=== PATIENT | female | born 1975 | race Native Hawaiian/Other Pacific Islander ===

== ENCOUNTER 2018-05-17 19:51 | Inpatient (IN) | payer OTHER ==
[2018-05-17 21:04] LABS: BASO % 0.4 % (0.0-2.0); HEMOGLOBIN 11.8 g/dL (12.0-16.0); LYMPH # 1.4 K/uL (1.0-4.3); LYMPH % 12.3 % (20.0-40.0); MEAN CELL VOLUME 89.3 fl (81.0-99.0); MEAN CORPUSCULAR HGB CONC 34.7 g/dL (33.0-37.0); MEAN PLATELET VOLUME 8.6 fl (7.2-11.7); MONO # 0.6 K/uL (0.0-0.8); MONO % 5.1 % (0.0-10.0); NEUT # 9.4 K/uL (1.8-7.0); NEUT % 82.2 % (50.0-75.0); RBC 3.8 Mil/uL (3.80-5.20); RED CELL DISTRIBUTION WIDTH 12.6 % (11.5-14.5); WHITE BLOOD COUNT 11.5 K/uL (4.8-10.8)
[2018-05-17 21:16] LABS: ACETAMINOPHEN < 10.0 ug/ml (10.0-30.0); SALICYLATE < 1.0 mg/dl
[2018-05-17] MEDS ORDERED: Sodium Chloride 0.9% 1,000 ML IV STA (21:29)
[2018-05-17 21:31] LABS: BLOOD UREA NITROGEN 6 mg/dl (7-17); GFR NON-AFRICAN AMERICAN > 60
[2018-05-17] MEDS ORDERED: Sodium Chloride 3% 100 ML IV SCH ×2 (21:45)
--- NOTE | 2018-05-17 22:12 | ED PDOC ---
HPI: General Adult Time Seen by Provider: 05/17/18 20:05 Chief Complaint (Nursing): Psychiatric Evaluation Chief Complaint (Provider): AMS History Per: Family () History/Exam Limitations: clinical condition Onset/Duration Of Symptoms: Hrs (today) Current Symptoms Are (Timing): Still Present Additional Complaint(s): Amy Langford is a 42 year old female, with a past medical history of anxiety, schizophrenia and currently on Zyprexa, who was brought to the emergency department by EMS accompanied by for altered mental status onset today. reports patient has been very anxious all day and she's been having pressured speech. He states all of sudden while she was in the kitchen she became silent and started to foam at the mouth. further states she fell back and hit the back of her head. He denies any seizure-like activity, tongue biting or incontinence. reports the only medications she took was Zyprexa 5mg today and she did not take any other medications. EMS report patient was combative and rough on the way to the hospital. History limited due to altered mental status. PMD: None provided. Past Medical History Reviewed: Historical Data, Nursing Documentation, Vital Signs Vital Signs: Last Vital Signs Temp 97.7 F 05/17/18 19:57 Pulse 71 05/17/18 19:57 Resp 16 05/17/18 19:57 BP 106/61 05/17/18 19:57 Pulse Ox 96 05/17/18 19:57 - Medical History PMH: Anxiety, Gastritis, Schizophrenia - Surgical History Surgical History: Endoscopy - Family History Family History: States: Unknown Family Hx - Immunization History Hx Tetanus Toxoid Vaccination: No Hx Influenza Vaccination: No Hx Pneumococcal Vaccination: No - Home Medications Home Medications: Ambulatory Orders Medication Instructions Recorded Olanzapine [Zyprexa] 5 mg PO DAILY #10 tablet 03/19/16 - Allergies Allergies/Adverse Reactions: Allergies Allergy/AdvReac Type Severity Reaction Status Date / Time No Known Allergies Allergy Unverified 05/17/18 19:57 Review of Systems Review Of Systems: ROS cannot be obtained secondary to pt's inabilty to answer questions. Neurological: Positive for: Altered Mental Status Physical Exam - Reviewed Nursing Documentation Reviewed: Yes Vital Signs Reviewed: Yes - Physical Exam Appears: Positive for: No Acute Distress Head Exam: Positive for: NORMAL INSPECTION, NORMOCEPHALIC. Negative for: ATRAUMATIC (abrasion to the back of the head) Skin: Positive for: Normal Color, Warm, Dry Eye Exam: Positive for: Normal appearance, EOMI, PERRL Neck: Positive for: Normal, Painless ROM Cardiovascular/Chest: Positive for: Regular Rate, Rhythm. Negative for: Murmur Respiratory: Positive for: Normal Breath Sounds. Negative for: Respiratory Distress Gastrointestinal/Abdominal: Positive for: Normal Exam, Soft. Negative for: Tend erness Extremity: Positive for: Normal ROM (able to move all extremities). Negative for: Deformity Neurologic/Psych: Positive for: surgical consultant II-XII (intact), Other (awake but does not follow commands. Combative). Negative for: Alert, Oriented - Laboratory Results Result Diagrams: 05/17/18 20:55 05/18/18 01:46 - ECG O2 Sat by Pulse Oximetry: 96 (RA) Pulse Ox Interpretation: Normal Medical Decision Making Medical Decision Making: Time: 20:05 A/P: 42 y/o with a history of psychiatric disorders presenting for AMS. Patient has profound hyponatremia on blood work possibly due to SIADH vs antipsychotic medications. Head CT negative for acute intracranial pathology. Due to severity of symptoms will give 100ml of hypertonic saline and reevaluate Initial Plan: --Head w/o contrast [CT] --EKG --Acetaminophen --Alcohol serum --BMP --Drug screen, urine --Osmolality, Serum --Osmolality, Urine --Salicylate --Drug screen, urine --Urine --Urine dipstick --CBC w/ differential --Chest portable [RAD] --Sodium Chloride 100 ml IV 1,000 mls/hr --Sodium Chloride 100 ml IV 1,000 mls/hr --Sodium Chloride 1,000 ml IV 500 mls/hr --Zofran Inj 4 mg IVP --Urinalysis --Reevaluation 21:[address] FINDINGS: BRAIN No acute intraparenchymal hemorrhage. No mass lesion. No CT evidence for acute territorial infarct. No midline shift or extra-axial collections. VENTRICLES: No hydrocephalus. ORBITS: The orbits are unremarkable. SINUSES AND MASTOIDS: The paranasal sinuses and mastoid air cells are clear. BONES: No fracture. SOFT TISSUES: Unremarkable. IMPRESSION: No acute intracranial abnormality. 10PM --[facility] --Patient becoming increasingly agitated, thrashing out, trying to stand up and pee on floor --Required 1 and then 2mg of ativan to calm patient with soft restraints --Straight cath was performed due to bladder distension with good urine output, patient became more calm and cooperative afterwards --Will recheck BMP to assess Na Scribe Attestation: Documented by Haroon Nash, acting as a scribe for Daniel Villalta MD. Provider Scribe Attestation: All medical record entries made by the Scribe were at my direction and personally dictated by me. I have reviewed the chart and agree that the record accurately reflects my personal performance of the history, physical exam, medical decision making, and the department course for this patient. I have also personally directed, reviewed, and agree with the discharge instructions and disposition. Disposition - Clinical Impression Clinical Impression: Hyponatremia, Altered mental status - Disposition Disposition Time: 22:00 Condition: FAIR
[2018-05-17] MEDS ORDERED: Sodium Chloride 3% 500 ML IV SCH (23:00)
[2018-05-18 00:32] LABS: SQUAMOUS EPITHIAL 6 /hpf (0-5); URINE BACTERIA RARE (<OCC); URINE BILIRUBIN NEGATIVE (NEGATIVE); URINE BLOOD LARGE (NEGATIVE); URINE CLARITY CLOUDY (Clear); URINE COLOR RED (YELLOW); URINE GLUCOSE (UA) NEG (Normal); URINE LEUKOCYTE ESTERASE TRACE Leu/uL (Negative); URINE PROTEIN 100 mg/dL (NEGATIVE); URINE UROBILINOGEN 0.2-1.0 mg/dL (0.2-1.0)
[2018-05-18 00:45] LABS: BARBITURATES, UR NEGATIVE (NEGATIVE); BENZODIAZEPINES, UR NEGATIVE (NEGATIVE); OPIATES, UR NEGATIVE (NEGATIVE); PHENCYCLIDINE, UR NEGATIVE (NEGATIVE)
[2018-05-18 00:46] LABS: OSMOLALITY,URINE 205 mosm/kg (300-1000)
[2018-05-18] MEDS ORDERED: Povidone Iodine Oint 10% Foilpak UD ONE (01:34)
[2018-05-18 02:02] LABS: BLOOD UREA NITROGEN 5 mg/dl (7-17); CALCIUM 8.3 mg/dL (8.4-10.2); GFR NON-AFRICAN AMERICAN > 60
[2018-05-18] MEDS ORDERED: cefTRIAXone (Rocephin) 1 gm Inj ONE ×2 (02:34→08:43)
[2018-05-18] MEDS ORDERED: Sodium Chloride 0.9% 1,000 ML IV SCH (06:00)
[2018-05-18 06:34] LABS: BASO % 0.1 % (0.0-2.0); HEMOGLOBIN 12.9 g/dL (12.0-16.0); LYMPH # 1.2 K/uL (1.0-4.3); LYMPH % 11.3 % (20.0-40.0); MEAN CELL VOLUME 90.2 fl (81.0-99.0); MEAN CORPUSCULAR HEMOGLOBIN 31.7 pg (27.0-31.0); MEAN CORPUSCULAR HGB CONC 35.2 g/dL (33.0-37.0); MEAN PLATELET VOLUME 8.2 fl (7.2-11.7); MONO # 0.8 K/uL (0.0-0.8); MONO % 7.6 % (0.0-10.0); NEUT # 8.9 K/uL (1.8-7.0); NRBC % 0.1 % (0.0-0.0); RBC 4.08 Mil/uL (3.80-5.20); RED CELL DISTRIBUTION WIDTH 12.6 % (11.5-14.5); WHITE BLOOD COUNT 10.9 K/uL (4.8-10.8)
[2018-05-18 06:45] LABS: ALB/GLOB RATIO 1.3 (1.0-2.1); ALBUMIN 3.8 g/dL (3.5-5.0); ALT/SGPT 23 U/L (9-52); AST/SGOT 31 U/L (14-36); BLOOD UREA NITROGEN 5 mg/dl (7-17); CALCIUM 8.6 mg/dL (8.4-10.2); GFR NON-AFRICAN AMERICAN > 60
[2018-05-18] MEDS ORDERED: Potassium Chloride 20 mEq ER Tab PO ONE (06:49)
[2018-05-18] MEDS ORDERED: Potassium CL 10mEq/100ml 100 ML IVPB ONE ×3 (07:10→07:53)
--- NOTE | 2018-05-18 09:49 | CT ---
Date of service: 05/17/2018 PROCEDURE: CT HEAD WITHOUT CONTRAST. HISTORY: head injury, vomiting COMPARISON: None available. TECHNIQUE: Axial computed tomography images were obtained through the head/brain without intravenous contrast. Radiation dose: Total exam DLP = 1822.09 mGy-cm. This CT exam was performed using one or more of the following dose reduction techniques: Automated exposure control, adjustment of the mA and/or kV according to patient size, and/or use of iterative reconstruction technique. FINDINGS: HEMORRHAGE: No intracranial hemorrhage. BRAIN: No intracranial mass. There is diffuse cerebral edema with loss of the normal sulci and some a narrowing of the 3rd and lateral ventricles. There is no evidence of herniation. The basilar cisterns are preserved. The cerebellar tonsils are normally situated. VENTRICLES: No hydrocephalus. No midline CALVARIUM: No fracture. PARANASAL SINUSES: Unremarkable as visualized. No significant inflammatory changes. MASTOID AIR CELLS: Unremarkable as visualized. No inflammatory changes. OTHER FINDINGS: None. IMPRESSION: Findings consistent with diffuse cerebral edema. No herniation. No intracranial hemorrhage. The preliminary findings for this examination were reported by [facility] Rad[facility] at 9:14 p.m. on 05/17/2018. There is discordance of this report with the preliminary findings. The preliminary report did not describe the finding of diffuse cerebral edema. Findings discussed by telephone with Dr. Thomason in the emergency room at 9:45 a.m. on 05/18/2018.
--- NOTE | 2018-05-18 10:01 | CP.PCM.CON ---
History of Present Illness - History of Present Illness History of Present Illness: consult requested for agitation pt is a 42 year old female, with a past psychiatric history of paranoid schizophrenia who was brought to the emergency department by EMS accompanied by for altered mental status onset today. reports patient has been very anxious all day and she's been having pressured speech. He states all of sudden while she was in the kitchen she became silent and started to foam at the mouth. further states she fell back and hit the back of her head on evaluation pt has her eye closed, non verbal, with psychomotor agitation attempting to get out of bed , had to be physically restrained for sfety, unable to further assess mental status spoke with Mr Bryant Mota [phone] , reported pt has been diagnosed with schizophrenia paranoid type 8years ago, hospitalized in [place] and placed on risperidone, since then she has history of non compliance with medications, had multiple hospitalizations in the [facility], one was at [facility] [place] and one was in [place] last year, pt placed on zyprexa but non compliant Past Patient History - Past Social History Smoking Status: Never Smoked - GASTROINTESTINAL Hx Gastritis: Yes - PSYCHIATRIC Hx Anxiety: Yes Hx Schizophrenia: Yes - ANESTHESIA Hx Anesthesia: No Meds Allergies/Adverse Reactions: Allergies Allergy/AdvReac Type Severity Reaction Status Date / Time No Known Allergies Allergy Unverified 05/17/18 19:57 - Medications Medications: Current Medications Sodium Chloride (Hypertonic Saline 3%) 500 mls @ 30 mls/hr IV .[id number] KEY Stop: 05/18/18 22:48 Last Admin: 05/18/18 00:14 Dose: 30 mls/hr Ceftriaxone Sodium 1 gm/ (Sodium Chloride) 100 mls @ 100 mls/hr IVPB DAILY KEY; Protocol Lorazepam (Ativan) 1 mg IVP Q6 KEY Last Admin: 05/18/18 07:39 Dose: 1 mg Results - Vital Signs Recent Vital Signs: Last Vital Signs Temp 99.1 F 05/18/18 08:34 Pulse 84 05/18/18 09:34 Resp 26 H 05/18/18 09:34 BP 140/69 05/18/18 09:34 Pulse Ox 94 L 05/18/18 09:34 - Labs Result Diagrams: 05/18/18 05:55 05/18/18 05:55 Labs: Laboratory Results - last 24 hr 05/17/18 05/17/18 05/17/18 20:55 20:55 20:55 WBC 11.5 H RBC 3.80 Hgb 11.8 L Hct 34.0 MCV 89.3 D MCH 31.0 MCHC 34.7 RDW 12.6 Plt Count 233 MPV 8.6 Neut % (Auto) 82.2 H Lymph % (Auto) 12.3 L [place] % (Auto) 5.1 Eos % (Auto) 0.0 Baso % (Auto) 0.4 Neut # (Auto) 9.4 H Lymph # (Auto) 1.4 [place] # (Auto) 0.6 Eos # (Auto) 0.0 Baso # (Auto) 0.0 Sodium 119 L* Potassium 3.8 Chloride 87 L Carbon Dioxide 18 L Anion Gap 18 BUN 6 L Creatinine 0.4 L Est GFR ( Amer) > 60 Est GFR (Non-Af Amer) > 60 Random Glucose 123 H Serum Osmolality Calcium 8.0 L Phosphorus Magnesium Total Bilirubin AST ALT Alkaline Phosphatase Total Protein Albumin Globulin Albumin/Globulin Ratio Urine Color Urine Clarity Urine pH Ur Specific [place] Urine Protein Urine Glucose (UA) Urine Ketones Urine Blood Urine Nitrate Urine Bilirubin Urine Urobilinogen Ur Leukocyte Esterase Urine RBC (Auto) Urine Microscopic WBC Ur Squamous Epith Cells Urine Bacteria Urine Osmolality Salicylates < 1.0 Urine Opiates Screen Urine Methadone Screen Acetaminophen < 10.0 L Ur Barbiturates Screen Ur Phencyclidine Scrn Ur Amphetamines Screen U Benzodiazepines Scrn U Oth Cocaine Metabols U Cannabinoids Screen Alcohol, Quantitative < 10 05/17/18 05/18/18 05/18/18 22:15 00:15 00:15 WBC RBC Hgb Hct MCV MCH MCHC RDW Plt Count MPV Neut % (Auto) Lymph % (Auto) [place] % (Auto) Eos % (Auto) Baso % (Auto) Neut # (Auto) Lymph # (Auto) [place] # (Auto) Eos # (Auto) Baso # (Auto) Sodium Potassium Chloride Carbon Dioxide Anion Gap BUN Creatinine Est GFR ( Amer) Est GFR (Non-Af Amer) Random Glucose Serum Osmolality 243 L Calcium Phosphorus Magnesium Total Bilirubin AST ALT Alkaline Phosphatase Total Protein Albumin Globulin Albumin/Globulin Ratio Urine Color Red Urine Clarity Cloudy Urine pH 6.0 Ur Specific [place] 1.006 Urine Protein 100 Urine Glucose (UA) Neg Urine Ketones 20 Urine Blood Large Urine Nitrate Negative Urine Bilirubin Negative Urine Urobilinogen 0.2-1.0 Ur Leukocyte Esterase Trace Urine RBC (Auto) 846 H Urine Microscopic WBC 85 H Ur Squamous Epith Cells 6 H Urine Bacteria Rare Urine Osmolality 205 L Salicylates Urine Opiates Screen Negative Urine Methadone Screen Negative Acetaminophen Ur Barbiturates Screen Negative Ur Phencyclidine Scrn Negative Ur Amphetamines Screen Negative U Benzodiazepines Scrn Negative U Oth Cocaine Metabols Negative U Cannabinoids Screen Negative Alcohol, Quantitative 05/18/18 05/18/18 05/18/18 01:46 05:55 05:55 WBC 10.9 H RBC 4.08 Hgb 12.9 Hct 36.7 MCV 90.2 MCH 31.7 H MCHC 35.2 RDW 12.6 Plt Count 243 MPV 8.2 Neut % (Auto) 81.0 H Lymph % (Auto) 11.3 L [place] % (Auto) 7.6 Eos % (Auto) 0.0 Baso % (Auto) 0.1 Neut # (Auto) 8.9 H Lymph # (Auto) 1.2 [place] # (Auto) 0.8 Eos # (Auto) 0.0 Baso # (Auto) 0.0 Sodium 124 L 131 L Potassium 3.3 L 3.4 L Chloride 92 L 99 Carbon Dioxide 20 L 22 Anion Gap 15 13 BUN 5 L 5 L Creatinine 0.5 L 0.5 L Est GFR ( Amer) > 60 > 60 Est GFR (Non-Af Amer) > 60 > 60 Random Glucose 122 H 111 H Serum Osmolality Calcium 8.3 L 8.6 Phosphorus 2.2 L Magnesium 2.0 Total Bilirubin 1.2 AST 31 ALT 23 Alkaline Phosphatase 44 Total Protein 6.7 Albumin 3.8 Globulin 2.9 Albumin/Globulin Ratio 1.3 Urine Color Urine Clarity Urine pH Ur Specific [place] Urine Protein Urine Glucose (UA) Urine Ketones Urine Blood Urine Nitrate Urine Bilirubin Urine Urobilinogen Ur Leukocyte Esterase Urine RBC (Auto) Urine Microscopic WBC Ur Squamous Epith Cells Urine Bacteria Urine Osmolality Salicylates Urine Opiates Screen Urine Methadone Screen Acetaminophen Ur Barbiturates Screen Ur Phencyclidine Scrn Ur Amphetamines Screen U Benzodiazepines Scrn U Oth Cocaine Metabols U Cannabinoids Screen Alcohol, Quantitative Assessment & Plan - Assessment and Plan (Free Text) Assessment: pt noted to have NA of 119 rule out hyperactive delirium schizophrenia paranoid type with hyperactive catatonia Plan: recommend pt to be started on haldol 2mg q6 po if refuses IM ativan 1mg po q6 if refuses IM benadryl 25mg po q6 if refuses IM pt when medically cleared need to be referred for screening for involuntary admission by [facility] as pt at current mental status is floridly psychotic and needs stabilization
--- NOTE | 2018-05-18 10:29 | CP.PCM.PN ---
Subjective - Date & Time of Evaluation Date of Evaluation: 05/18/18 Time of Evaluation: 10:26 - Subjective Subjective: called by Dr Mia hill diffuse cerebral edema undoubtedly secondary to metobolic/hyponatremia (correction) factors - Not secondary to trauma suggest medical management Objective - Vital Signs/Intake and Output Vital Signs (last 24 hours): Temp Pulse Resp BP Pulse Ox 99.1 F 84 26 H 140/69 94 L 05/18/18 08:34 05/18/18 09:34 05/18/18 09:34 05/18/18 09:34 05/18/18 09:34 - Medications Medications: Current Medications Sodium Chloride (Hypertonic Saline 3%) 500 mls @ 30 mls/hr IV .[id number] KEY Stop: 05/18/18 22:48 Last Admin: 05/18/18 00:14 Dose: 30 mls/hr Ceftriaxone Sodium 1 gm/ (Sodium Chloride) 100 mls @ 100 mls/hr IVPB DAILY KEY; Protocol Lorazepam (Ativan) 1 mg IVP Q6 KEY Last Admin: 05/18/18 07:39 Dose: 1 mg - Labs Labs: 05/18/18 05:55 05/18/18 05:55
[2018-05-18] MEDS ORDERED: levETIRAcetam 1,000 MG in Sodium Chloride 0.9% 100 ML IVPB ONE (10:41)
--- NOTE | 2018-05-18 10:45 | CARD ---
APPROVED REPORT Date of service: 05/17/2018 EKG Measurement Heart [id number] <Conclusion> Normal sinus rhythm Normal ECG
[2018-05-18] MEDS: Dexmedetomidine Hydrochloride 400 MCG in Sodium Chloride 0.9% 96 ML IV ONE ×2 (11:22→17:57)
--- NOTE | 2018-05-18 12:58 | RAD ---
Date of service: 05/17/2018 HISTORY: AMS COMPARISON: 02/27/2012. FINDINGS: LUNGS: No active pulmonary disease. PLEURA: No significant pleural effusion identified, no pneumothorax apparent. CARDIOVASCULAR: No atherosclerotic calcification present Normal. OSSEOUS STRUCTURES: No significant abnormalities. VISUALIZED UPPER ABDOMEN: Normal. OTHER FINDINGS: None. IMPRESSION: No active disease. No significant interval change compared to the prior examination(s).
[2018-05-18] MEDS ORDERED: Valproate 1,000 MG in Sodium Chloride 0.9% 100 ML IVPB ONE (14:00)
[2018-05-18 15:29] LABS: ALB/GLOB RATIO 1.4 (1.0-2.1); ALBUMIN 4.1 g/dL (3.5-5.0); ALT/SGPT 29 U/L (9-52); AST/SGOT 56 U/L (14-36); BLOOD UREA NITROGEN 4 mg/dl (7-17); CALCIUM 8.9 mg/dL (8.4-10.2); GFR NON-AFRICAN AMERICAN > 60
--- NOTE | 2018-05-18 15:46 | CP.CCUPN ---
CCU Subjective - Physician Review Subjective (Free Text): Discussed with ER MD. No history / HPI obtainable from patient- at the bedside. 42F with PMH BiPolar psychiatric disease, non-compliant on Zyprexa, admitted today after falling at home, no LOC, had witnessed generalized tonic clonic activity lasting for approx. 20 secs as per . No bowel or bladder incontinence noted. Now, under 4 point leather restraints, lying supine, under 1:1 supervision, intermittently trying to sit bolt-upright suddenly, does not appear distressed nor diaphoretic, not following commands in [place]ian or [place] language. reports no prior h/o seizures, other neurologic disorders. He mentions she has been drinking more water than usual over the past 24-36 hours, +abnormal sleep pattern over the past week. Admission Na levels was 119, now 131 this AM, 9 hours later. Other vitals and I/O's reviewed. SBP 120-130s, HR 88, RR 16, SPo2 96% on RA, Afebrile. ROS: No other pertinent negs or positives on 10+ system review obtainable due to nonverbal and agitated state Allergies: NKDA Home Meds: Zyprexa 5mg qd PMSFH: All other Nursing and physician documentation reviewed to date; no new pertinent info noted relevant to current medical problems. EXAM- HEENT: no icterus, no gaze preference, Pupils 2 mm bilat and sluggish reactivity, depressed gag, agitated on testing NECK: No JVD visible, supple, carotids equal upstroke bilat/no bruit CHEST: clear BS all gardner, no wheezes audible HEART: regular, distant tachy S1S2, no rubs / murmurs ABD: soft, no focal tenderness, no guarding, no organomegaly, BS hypoactive. EXT: no edema, no calf tenderness or palpable cords, distal pulses intact and symmetrical. NEURO: non-verbal, moves all extremities SKIN: no rashes, warm and dry, Multiple bruises over bilat shoulders, upper chest, knees and arms. No skin breakage. LABS: WBC= 10.9 HGB= 12.9 PLTs= 243K Na= 131 K= 3.4 CL=99 HCO3= 22 BUN/Cr= 5/0.5 BS= 111 CXR: clear (my interp). CT Brain result reviewed; no acute pathology. EKG: Sinus 60, normal (my interp). IMPRESSION / MAJOR PROBLEMS NOW: 1. New Onset Seizure Disorder 2. Hyponatremia 2 Psychogenic Polydipsia 3. Delirium / Encephalopathy, 2 S/p Correction of Hyponatremia, r/o ODS / CPM effect PLAN: 1. Re-review and interpretation of initial CT brain noted. Further infusion of NSS stopped for now. D5W started, to reverse Na levels a bit, will consider Desmopressin too. If CPM effects worsen, will consider plasmapheresis. MRI Brain, AED loading with Valproate, and 24H video EEG after discussion with Neurologist. 2. Maintain Neurochecks, HOB elevation, Seizure precautions. 3. Precedex for Delirium control. 4. Watch for need for airway protection. 5. See orders.
--- NOTE | 2018-05-18 17:42 | MRI ---
Date of service: 05/18/2018 PROCEDURE: MRI BRAIN WITHOUT CONTRAST HISTORY: f/u cerebral edema COMPARISON: Comparison is made to the previous CT dated 05/17/2018 TECHNIQUE: Multiplanar, multisequence MR images of the brain were obtained without intravenous contrast enhancement. FINDINGS: HEMORRHAGE: None DWI: No evidence of an acute or early subacute infarction. BRAIN PARENCHYMA: There is a questionable 7.3 x 6 millimeter Iso signal lesion in the frontal horn of the right lateral ventricle. No evidence of mass effect or midline shift. No atrophy or chronic microvascular ischemic changes. VENTRICLES: Unremarkable. No hydrocephalus. CRANIUM: Unremarkable. ORBITS: Grossly unremarkable. PARANASAL SINUSES/MASTOIDS: Clear VASCULAR SYSTEM: Skull base flow voids intact. OTHER FINDINGS: None. IMPRESSION: No evidence of acute pathology in the brain. No MRI evidence of brain edema noted in the T2 FLAIR images. Suspicious for possible small lesion at the frontal horn of the right lateral ventricle measures 7.3 x 6 millimeter not fully characterized in this study.
[2018-05-18] MEDS: VALPROATE IVPB SCH ×2 (17:48→23:57)
[2018-05-18] MEDS: SODIUM CHLORIDE 0.9% IVPB SCH ×2 (17:48→23:57)
--- NOTE | 2018-05-18 18:15 | CP.PCM.HP ---
History of Present Illness - History of Present Illness History of Present Illness: pt admitted for ams and hyponatremia. overnight CT head was read as normal. captain waiter this provider contacted by [facility] stating final ct head was read w/ difuse brain edema. pt was agitated all night requiring sedation adn restraints. pt seen at bedside w/ sig other and dr mello-icu. pt was upgraded after ct finding. sig other describes pt ddrinking significant amts of water yesterday but no other complaints. no dysurai, frequency, urgency, etc. no f/c, n/v/d. no uri s/s. pt has been noncompliant w/ her psych meds for bipolar 1 and psychosis. at present pt is non verbal w/ [address] 1:1 at bedside. resps even and unalbored. spo2 92-95% placded on nasal o2 at this providers orders. nsr on monitor. describes tonic clonic movements and foaming at the mouth at time of fall at home, captain waiter er, when he called 911. all bw noted. imaging to date reviwed. case d/c w/ dr guardado-neurosurg who recommends medical management. neuro on consult. Present on Admission - Present on Admission Any Indicators Present on Admission: No Review of Systems - Review of Systems Systems not reviewed;Unavailable: Altered Mental Status, Psychotic - Neurological Neurological: As Per HPI, Behavioral Changes, Confusion Past Patient History - Past Social History Smoking Status: Never Smoked - MUSCULOSKELETAL/RHEUMATOLOGICAL Hx Falls: Yes - GASTROINTESTINAL Hx Gastritis: Yes - PSYCHIATRIC Hx Psychophysiologic Disorder: Yes Hx Substance Use: No - ANESTHESIA Hx Anesthesia: No Meds Allergies/Adverse Reactions: Allergies Allergy/AdvReac Type Severity Reaction Status Date / Time No Known Allergies Allergy Unverified 05/17/18 19:57 Physical Exam - Constitutional Appears: Non-toxic, Combative, Agitated, Confused - Head Exam Head Exam: ATRAUMATIC, NORMAL INSPECTION, NORMOCEPHALIC - Eye Exam Eye Exam: EOMI, Normal appearance, PERRL Pupil Exam: NORMAL ACCOMODATION, PERRL - ENT Exam ENT Exam: Mucous Membranes Moist, Normal Exam - Neck Exam Neck exam: Positive for: Normal Inspection - Respiratory Exam Respiratory Exam: Clear to Auscultation Bilateral, NORMAL BREATHING PATTERN - Cardiovascular Exam Cardiovascular Exam: REGULAR RHYTHM, RRR, +S1, +S2 - GI/Abdominal Exam GI & Abdominal Exam: Normal Bowel Sounds, Soft. absent: Tenderness - Extremities Exam Extremities exam: Positive for: full ROM, normal capillary refill, normal inspection, pedal pulses present - Back Exam Back exam: NORMAL INSPECTION - Neurological Exam Neurological exam: Abnormal Gait, Reflexes Normal Additional comments: agitated, confused, in 4 pt restraints w/ 1:1 at bedside. non verbal. moving upper body - Psychiatric Exam Psychiatric exam: Agitated, Manic - Skin Skin Exam: Dry, Intact, Normal Color, Warm Results - Vital Signs Recent Vital Signs: Last Vital Signs Temp 97.8 F 05/18/18 16:00 Pulse 52 L 05/18/18 18:00 Resp 18 05/18/18 18:00 BP 97/61 L 05/18/18 18:00 Pulse Ox 100 05/18/18 18:00 - Labs Result Diagrams: 05/18/18 05:55 05/18/18 14:26 Labs: Laboratory Results - last 24 hr 05/17/18 05/17/18 05/17/18 20:55 20:55 20:55 WBC 11.5 H RBC 3.80 Hgb 11.8 L Hct 34.0 MCV 89.3 D MCH 31.0 MCHC 34.7 RDW 12.6 Plt Count 233 MPV 8.6 Neut % (Auto) 82.2 H Lymph % (Auto) 12.3 L [place] % (Auto) 5.1 Eos % (Auto) 0.0 Baso % (Auto) 0.4 Neut # (Auto) 9.4 H Lymph # (Auto) 1.4 [place] # (Auto) 0.6 Eos # (Auto) 0.0 Baso # (Auto) 0.0 Sodium 119 L* Potassium 3.8 Chloride 87 L Carbon Dioxide 18 L Anion Gap 18 BUN 6 L Creatinine 0.4 L Est GFR ( Amer) > 60 Est GFR (Non-Af Amer) > 60 Random Glucose 123 H Serum Osmolality Calcium 8.0 L Phosphorus Magnesium Total Bilirubin AST ALT Alkaline Phosphatase Total Protein Albumin Globulin Albumin/Globulin Ratio Urine Color Urine Clarity Urine pH Ur Specific [place] Urine Protein Urine Glucose (UA) Urine Ketones Urine Blood Urine Nitrate Urine Bilirubin Urine Urobilinogen Ur Leukocyte Esterase Urine RBC (Auto) Urine Microscopic WBC Ur Squamous Epith Cells Urine Bacteria Urine Osmolality Salicylates < 1.0 Urine Opiates Screen Urine Methadone Screen Acetaminophen < 10.0 L Ur Barbiturates Screen Ur Phencyclidine Scrn Ur Amphetamines Screen U Benzodiazepines Scrn U Oth Cocaine Metabols U Cannabinoids Screen Alcohol, Quantitative < 10 05/17/18 05/18/18 05/18/18 22:15 00:15 00:15 WBC RBC Hgb Hct MCV MCH MCHC RDW Plt Count MPV Neut % (Auto) Lymph % (Auto) [place] % (Auto) Eos % (Auto) Baso % (Auto) Neut # (Auto) Lymph # (Auto) [place] # (Auto) Eos # (Auto) Baso # (Auto) Sodium Potassium Chloride Carbon Dioxide Anion Gap BUN Creatinine Est GFR ( Amer) Est GFR (Non-Af Amer) Random Glucose Serum Osmolality 243 L Calcium Phosphorus Magnesium Total Bilirubin AST ALT Alkaline Phosphatase Total Protein Albumin Globulin Albumin/Globulin Ratio Urine Color Red Urine Clarity Cloudy Urine pH 6.0 Ur Specific [place] 1.006 Urine Protein 100 Urine Glucose (UA) Neg Urine Ketones 20 Urine Blood Large Urine Nitrate Negative Urine Bilirubin Negative Urine Urobilinogen 0.2-1.0 Ur Leukocyte Esterase Trace Urine RBC (Auto) 846 H Urine Microscopic WBC 85 H Ur Squamous Epith Cells 6 H Urine Bacteria Rare Urine Osmolality 205 L Salicylates Urine Opiates Screen Negative Urine Methadone Screen Negative Acetaminophen Ur Barbiturates Screen Negative Ur Phencyclidine Scrn Negative Ur Amphetamines Screen Negative U Benzodiazepines Scrn Negative U Oth Cocaine Metabols Negative U Cannabinoids Screen Negative Alcohol, Quantitative 05/18/18 05/18/18 05/18/18 01:46 05:55 05:55 WBC 10.9 H RBC 4.08 Hgb 12.9 Hct 36.7 MCV 90.2 MCH 31.7 H MCHC 35.2 RDW 12.6 Plt Count 243 MPV 8.2 Neut % (Auto) 81.0 H Lymph % (Auto) 11.3 L [place] % (Auto) 7.6 Eos % (Auto) 0.0 Baso % (Auto) 0.1 Neut # (Auto) 8.9 H Lymph # (Auto) 1.2 [place] # (Auto) 0.8 Eos # (Auto) 0.0 Baso # (Auto) 0.0 Sodium 124 L 131 L Potassium 3.3 L 3.4 L Chloride 92 L 99 Carbon Dioxide 20 L 22 Anion Gap 15 13 BUN 5 L 5 L Creatinine 0.5 L 0.5 L Est GFR ( Amer) > 60 > 60 Est GFR (Non-Af Amer) > 60 > 60 Random Glucose 122 H 111 H Serum Osmolality Calcium 8.3 L 8.6 Phosphorus 2.2 L Magnesium 2.0 Total Bilirubin 1.2 AST 31 ALT 23 Alkaline Phosphatase 44 Total Protein 6.7 Albumin 3.8 Globulin 2.9 Albumin/Globulin Ratio 1.3 Urine Color Urine Clarity Urine pH Ur Specific [place] Urine Protein Urine Glucose (UA) Urine Ketones Urine Blood Urine Nitrate Urine Bilirubin Urine Urobilinogen Ur Leukocyte Esterase Urine RBC (Auto) Urine Microscopic WBC Ur Squamous Epith Cells Urine Bacteria Urine Osmolality Salicylates Urine Opiates Screen Urine Methadone Screen Acetaminophen Ur Barbiturates Screen Ur Phencyclidine Scrn Ur Amphetamines Screen U Benzodiazepines Scrn U Oth Cocaine Metabols U Cannabinoids Screen Alcohol, Quantitative 05/18/18 14:26 WBC RBC Hgb Hct MCV MCH MCHC RDW Plt Count MPV Neut % (Auto) Lymph % (Auto) [place] % (Auto) Eos % (Auto) Baso % (Auto) Neut # (Auto) Lymph # (Auto) [place] # (Auto) Eos # (Auto) Baso # (Auto) Sodium 137 Potassium 3.5 L Chloride 107 Carbon Dioxide 23 Anion Gap 11 BUN 4 L Creatinine 0.4 L Est GFR ( Amer) > 60 Est GFR (Non-Af Amer) > 60 Random Glucose 131 H Serum Osmolality Calcium 8.9 Phosphorus Magnesium Total Bilirubin 1.2 AST 56 H D ALT 29 Alkaline Phosphatase 47 Total Protein 7.0 Albumin 4.1 Globulin 3.0 Albumin/Globulin Ratio 1.4 Urine Color Urine Clarity Urine pH Ur Specific [place] Urine Protein Urine Glucose (UA) Urine Ketones Urine Blood Urine Nitrate Urine Bilirubin Urine Urobilinogen Ur Leukocyte Esterase Urine RBC (Auto) Urine Microscopic WBC Ur Squamous Epith Cells Urine Bacteria Urine Osmolality Salicylates Urine Opiates Screen Urine Methadone Screen Acetaminophen Ur Barbiturates Screen Ur Phencyclidine Scrn Ur Amphetamines Screen U Benzodiazepines Scrn U Oth Cocaine Metabols U Cannabinoids Screen Alcohol, Quantitative Assessment & Plan (1) Psychosis Assessment and Plan: psych consult recs appriciated. [facility] [place] when med stable Status: Acute (2) DVT prophylaxis Assessment and Plan: scd nad ae hose hold anticoag until full etiology of s/s Status: Acute (3) Altered mental status Assessment and Plan: ?? r/t seizure vs psychosis vs cerebral edema vs hyponatremia vs other etiology 1:1 for safety, 4 pt restraints icu care caution w/ sedation and all sedation orders dc for now. q1h neuro checks depakote and neuro consult for r/o seizures Status: Acute (4) Hyponatremia Assessment and Plan: corrected in er w/ 3% saline icu care cautious monitoring of fluid balance, na Status: Acute (5) UTI (urinary tract infection) Assessment and Plan: rocephin, ivf, monitor c/s Status: Acute Decision To Admit - Pt Status Changed To: Hospital Disposition Of: Inpatient - Admit Certification Admit to Inpatient:: After my assessment, the patient will require h ospitalization for at least two midnights. This is because of the severity of symptoms shown, intensity of services needed, and/or the medical risk in this patient being treated as an outpatient. - . Bed Request Type: Intensive Care Admitting Physician: Samy Coombs
[2018-05-18 21:31] LABS: BLOOD UREA NITROGEN 5 mg/dl (7-17); CALCIUM 8.8 mg/dL (8.4-10.2); GFR NON-AFRICAN AMERICAN > 60
[2018-05-18] MEDS ORDERED: Lactated Ringer's 500 ML IV SCH (21:45)
[2018-05-18] MEDS ORDERED: Lactated Ringer's 1,000 ML IV SCH (21:45)
[2018-05-19] MEDS: VALPROATE IVPB SCH ×2 (03:12→10:19)
[2018-05-19] MEDS: SODIUM CHLORIDE 0.9% IVPB SCH ×2 (03:12→10:19)
[2018-05-19 06:46] LABS: BASO % 0.4 % (0.0-2.0); EOS % 0.4 % (0.0-4.0); HEMOGLOBIN 12.2 g/dL (12.0-16.0); LYMPH # 2.2 K/uL (1.0-4.3); LYMPH % 30.7 % (20.0-40.0); MEAN CELL VOLUME 91.3 fl (81.0-99.0); MEAN CORPUSCULAR HEMOGLOBIN 31.5 pg (27.0-31.0); MEAN CORPUSCULAR HGB CONC 34.5 g/dL (33.0-37.0); MEAN PLATELET VOLUME 8.7 fl (7.2-11.7); MONO # 0.5 K/uL (0.0-0.8); MONO % 6.7 % (0.0-10.0); NEUT # 4.5 K/uL (1.8-7.0); NEUT % 61.8 % (50.0-75.0); NRBC % 0.1 % (0.0-0.0); RBC 3.85 Mil/uL (3.80-5.20); RED CELL DISTRIBUTION WIDTH 12.7 % (11.5-14.5); WHITE BLOOD COUNT 7.2 K/uL (4.8-10.8)
[2018-05-19 06:59] LABS: ALB/GLOB RATIO 1.3 (1.0-2.1); ALBUMIN 3.5 g/dL (3.5-5.0); ALT/SGPT 24 U/L (9-52); AST/SGOT 57 U/L (14-36); BLOOD UREA NITROGEN 7 mg/dl (7-17); CALCIUM 8.5 mg/dL (8.4-10.2); GFR NON-AFRICAN AMERICAN > 60
--- NOTE | 2018-05-19 08:40 | CP.PCM.PN ---
Subjective - Date & Time of Evaluation Date of Evaluation: 05/19/18 Time of Evaluation: 08:39 - Subjective Subjective: pt calm, had ativan last night. b/l soft wrist restraints noted. on eeg. 1:1 at bedside. sinus constantino on monitor, hypotensive after presadex Objective - Vital Signs/Intake and Output Vital Signs (last 24 hours): Temp Pulse Resp BP Pulse Ox 99.2 F 51 L 20 81/38 L 100 05/19/18 08:00 05/19/18 08:00 05/19/18 08:00 05/19/18 08:00 05/19/18 08:00 Intake and Output: 05/19/18 05/19/18 06:59 18:59 Intake Total 1310 100 Output Total 800 Balance 510 100 - Medications Medications: Current Medications Valproate Sodium 150 mg/ (Sodium Chloride) 101.5 mls @ 100 mls/hr IVPB Q6 [facility] Last Admin: 05/19/18 03:12 Dose: 100 mls/hr Lactated Ringer's (Lactated Ringer's 500ml) 500 mls @ 999 mls/hr IV .Q31M [facility] Last Admin: 05/18/18 21:45 Dose: 999 mls/hr Lactated Ringer's (Lactated Ringer's) 1,000 mls @ 50 mls/hr IV .Q20H [facility] Last Admin: 05/18/18 22:20 Dose: 50 mls/hr Ceftriaxone Sodium 1 gm/ (Sodium Chloride) 100 mls @ 100 mls/hr IVPB DAILY@0300 [facility]; Protocol Last Admin: 05/19/18 03:16 Dose: 100 mls/hr Lorazepam (Ativan) 1 mg IVP Q4 PRN PRN Reason: Agitation Pantoprazole Sodium (Protonix Inj) 40 mg IVP DAILY [facility] - Labs Labs: 05/19/18 05:15 05/19/18 05:15 Assessment and Plan (1) Psychosis Status: Acute (2) DVT prophylaxis Status: Acute (3) Altered mental status Status: Acute (4) Hyponatremia Status: Acute (5) UTI (urinary tract infection) Status: Acute - Assessment and Plan (Free Text) Assessment: (1) Psychosis Assessment and Plan: psych consult recs appriciated. [facility] [place] when med stable Status: Acute (2) DVT prophylaxis Assessment and Plan: scd nad ae hose hold anticoag until full etiology of s/s Status: Acute (3) Altered mental status Assessment and Plan: ?? r/t seizure vs psychosis vs cerebral edema vs hyponatremia vs other etiology 1:1 for safety, now in 2 pt soft restraints icu care caution w/ sedation and all sedation orders dc for now. q1h neuro checks depakote and neuro consult for r/o seizures eeg being completed Status: Acute (4) Hyponatremia Assessment and Plan: corrected in er w/ 3% saline icu care cautious monitoring of fluid balance, na bw ntoed Status: Acute (5) UTI (urinary tract infection) Assessment and Plan: c/s noted. will dc rocephin Status: Acute
[2018-05-19] MEDS ORDERED: Potassium CL 10 MEQ/50 ML 50 ML IVPB SCH (14:00)
[2018-05-19] MEDS ORDERED: Potassium Chloride 20 mEq/15 ml LIQ UD PO ONE (14:30)
[2018-05-19] MEDS: Lactated Ringer's 1,000 ML IV SCH (15:00)
[2018-05-19] MEDS: Valproate 500 MG in Sodium Chloride 0.9% 100 ML IVPB SCH (22:22)
--- NOTE | 2018-05-20 02:11 | PN ---
DATE: 05/19/2018 CRITICAL CARE PROGRESS NOTE LOCATION: The patient in ICU, bed 424. TIME SPENT: 35 minutes. The patient is seen and evaluated at the bedside. Past medical, surgical, family, and social history reviewed. Events since admission noted. SUBJECTIVE: A 42-year-old female with history significant for bipolar disorder, on Zyprexa, noncompliant with medications, admitted through emergency room. She was brought to ER, accompanied by , reported fall at home, hitting back of her head, unclear details about the seizure activity. In the ER, no report of seizure, however, on admission, reports to having had brief seizure without bladder or bowel disturbance or biting of the tongue. Overnight, the patient received Ativan because of the agitation. Precedex was weaned off, seen by psychiatry consult, recommended involuntary admission at the [facility] for evaluation of her underlying psychiatric disorder. No further seizure noted. This morning, alert and awake, follows commands appropriately, has been at the bedside. Reports that she has no new complaints. Denies some headache. No pain at the neck. No chest pain, palpitation. No abdominal discomfort. Trying to take p.o. OBJECTIVE: VITAL SIGNS: Temperature 98.5, heart rate 63 to 74 and regular, blood pressure of 90/46 to 96/48 with a mean arterial pressure 64, saturation 100%. Intake of 1410, output 800, positive balance 610. Weight not documented properly. HEAD, EYES, EARS, NOSE AND THROAT: Pupils reactive, 3 mm. Conjunctivae pink. Sclerae are white. NECK: Supple. Trachea is central. CHEST: Bilateral breath sounds. Clear to auscultation. HEART: Rhythm regular. S1, S2 normal. No audible murmur. ABDOMEN: Bowel sounds present. Soft. Liver and spleen not palpable. Bladder not distended. EXTREMITIES: No clubbing, cyanosis, or edema. NEUROLOGIC: No cranial nerve deficit. No motor deficit. No sensory impairment. CURRENT MEDICATIONS: Include Ringer's lactate at 50 mL/hour, Ativan 1 mg IV every 4 hours p.r.n., Protonix 40 IV daily, potassium chloride 20 mEq p.o. x1, valproate 500 mg IV every 12 hours. LABORATORY DATA: WBC 7.2, hemoglobin 12.2, hematocrit 35.2, platelet count 199. Neutrophils 61.8, lymphocytes 30.7, monocytes 6.7. SMA-7, sodium 140, potassium 3.4, chloride 111, CO2 of 22, blood urea nitrogen 7, creatinine 0.5, calcium 8.5, phosphorus 2.3, magnesium 2.2, total bilirubin 0.7, AST 57, ALT 24, total protein 6.2, albumin 3.5. Urinalysis, wbc 85, rbc 846, urine osmolality 205, salicylate less than 1. Urine opiates negative. Alcohol level less than 10. Tylenol less than 10. Microbiology, urine culture 10 to 50 CFU per mL contamination. Brain MRI, no evidence of acute pathology in the brain. No MRI evidence of brain edema, suspicious for possible small lesion at the frontal horn of the right lateral ventricle, measures 7.3 x 6 mm. Chest x-ray, no active disease. No significant interval change compared to the prior examination. IMPRESSION: A 42-year-old female with a history significant for bipolar disorder, admitted after status post fall at home. Questionable seizure activity noted. Hyponatremia corrected. Remains hemodynamically stable, off Precedex. Hypokalemia noted, being corrected with potassium supplement. Seen by psychiatry consult. Evaluated for possible involuntary admission to stabilize her bipolar disorder. CT MRI showed abnormality involving small lesion at the frontal horn of the right lateral ventricle of unclear significance, may need neurology evaluation to identify, has any relation to reportedly seizure activity. Currently continue with antiseizure medications. Once the patient becomes more stable, can be evaluated further with an MRI. Stephen Munoz MD
[2018-05-20 07:40] LABS: ALB/GLOB RATIO 1.2 (1.0-2.1); ALBUMIN 3.2 g/dL (3.5-5.0); ALT/SGPT 59 U/L (9-52); AST/SGOT 145 U/L (14-36); BLOOD UREA NITROGEN 5 mg/dl (7-17); CALCIUM 8.5 mg/dL (8.4-10.2); GFR NON-AFRICAN AMERICAN > 60
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
[2018-05-20 08:12] LABS: BASO % 0.3 % (0.0-2.0); EOS % 0.6 % (0.0-4.0); HEMOGLOBIN 11.8 g/dL (12.0-16.0); LYMPH # 2.4 K/uL (1.0-4.3); LYMPH % 35.7 % (20.0-40.0); MEAN CELL VOLUME 94.8 fl (81.0-99.0); MEAN CORPUSCULAR HEMOGLOBIN 31.3 pg (27.0-31.0); MEAN PLATELET VOLUME 8.6 fl (7.2-11.7); MONO # 0.3 K/uL (0.0-0.8); MONO % 5.1 % (0.0-10.0); NEUT # 3.9 K/uL (1.8-7.0); NEUT % 58.3 % (50.0-75.0); NRBC % 0.1 % (0.0-0.0); RBC 3.78 Mil/uL (3.80-5.20); RED CELL DISTRIBUTION WIDTH 12.8 % (11.5-14.5); WHITE BLOOD COUNT 6.8 K/uL (4.8-10.8)
[2018-05-20] MEDS: Valproate 500 MG in Sodium Chloride 0.9% 100 ML IVPB SCH ×2 (08:35→22:41)
[2018-05-20] MEDS: Potassium Chloride 20 mEq ER Tab PO SCH ×2 (08:38→20:24)
[2018-05-20] MEDS: Prenatal Multivit/Folic Acid/Iron Tab PO SCH (10:00)
[2018-05-20] MEDS: Potassium CL 10mEq/100ml 100 ML IVPB SCH ×3 (10:01→16:19)
[2018-05-20 10:40] LABS: IRON 86 ug/dL (37-170)
[2018-05-20 10:53] LABS: % IRON SATURATION 35 % (20-55); TOTAL IRON BINDING CAPACITY 245 ug/dL (250-450)
--- NOTE | 2018-05-20 13:22 | CP.PCM.CON ---
History of Present Illness - History of Present Illness History of Present Illness: 42 yr old woman who was BIBA with , after having several seizures, and found to be severely hyponatremic. states that he was in the other room, when he suddenly heard a bang, and patient was seen to be tonic and falling back, hitting her head. SHe then had a gtc with foaming of the mouth. Of note, she has not been taking her psychiatry medications and has paranoid schizophrenia. PT's initial CT head showed severe cerebral edema, and she was unresponsive until this morning. COntinuous VEEG is now running and shows normal rhythms with no seizure, and some normal sleep and awake rhythms. There were no interictal discharges, but patient was started on depakote nonetheless. ROS: malaise, headache. PMH/PSH FH/SH All: On exam: AAOX2. doesnt know the date. CN 2-12 normal. no neglect. Follows one step commands, and names and repeats. Can ID her and his name. Motor: weak, but moves all extremities. Sensory: not accurate Cerebellar: no dysmetria Gait not tested. Past Patient History - Past Social History Smoking Status: Never Smoked - MUSCULOSKELETAL/RHEUMATOLOGICAL Hx Falls: Yes - GASTROINTESTINAL Hx Gastritis: Yes - PSYCHIATRIC Hx Psychophysiologic Disorder: Yes Hx Substance Use: No - ANESTHESIA Hx Anesthesia: No Meds Allergies/Adverse Reactions: Allergies Allergy/AdvReac Type Severity Reaction Status Date / Time No Known Allergies Allergy Unverified 05/17/18 19:57 - Medications Medications: Current Medications Lactated Ringer's (Lactated Ringer's 500ml) 500 mls @ 999 mls/hr IV .Q31M [facility] Last Admin: 05/18/18 21:45 Dose: 999 mls/hr Valproate Sodium 500 mg/ (Sodium Chloride) 105 mls @ 100 mls/hr IVPB Q12 [facility] Last Admin: 05/19/18 22:22 Dose: 100 mls/hr Lactated Ringer's (Lactated Ringer's) 1,000 mls @ 50 mls/hr IV .Q20H [facility] Last Admin: 05/19/18 15:00 Dose: 50 mls/hr Lorazepam (Ativan) 1 mg IVP Q4 PRN PRN Reason: Agitation Last Admin: 05/19/18 23:58 Dose: 1 mg Pantoprazole Sodium (Protonix Inj) 40 mg IVP DAILY [facility] Last Admin: 05/19/18 08:41 Dose: 40 mg Potassium Chloride (K-Dur 20 Meq Er Tab) 20 meq PO BID [facility] Stop: 05/21/18 17:01 Results - Vital Signs Recent Vital Signs: Last Vital Signs Temp 98.2 F 05/20/18 04:00 Pulse 58 L 05/20/18 06:00 Resp 20 05/20/18 06:00 BP 97/47 L 05/20/18 06:00 Pulse Ox 99 05/20/18 06:00 - Labs Result Diagrams: 05/20/18 05:30 05/20/18 05:30 Labs: Laboratory Results - last 24 hr 05/20/18 05/20/18 05:30 05:30 WBC 6.8 RBC 3.78 L Hgb 11.8 L Hct 35.8 MCV 94.8 D MCH 31.3 H MCHC 33.0 RDW 12.8 Plt Count 207 MPV 8.6 Neut % (Auto) 58.3 Lymph % (Auto) 35.7 [place] % (Auto) 5.1 Eos % (Auto) 0.6 Baso % (Auto) 0.3 Neut # (Auto) 3.9 Lymph # (Auto) 2.4 [place] # (Auto) 0.3 Eos # (Auto) 0.0 Baso # (Auto) 0.0 Sodium 138 Potassium 3.1 L Chloride 111 H Carbon Dioxide 22 Anion Gap 8 L BUN 5 L Creatinine 0.4 L Est GFR ( Amer) > 60 Est GFR (Non-Af Amer) > 60 Random Glucose 98 Calcium 8.5 Total Bilirubin 0.9 AST 145 H D ALT 59 H D Alkaline Phosphatase 42 Total Protein 5.9 L Albumin 3.2 L Globulin 2.7 Albumin/Globulin Ratio 1.2 Assessment & Plan - Assessment and Plan (Free Text) Assessment: MRI Brain: normal, no edema. A/p: 42 yr old woman with history of paranoid schizophrenia who was drinking copious amounts of water and induced a state of polydipsia, now awake, and with improving mental status. The neuroimaging studies are conflicting, but based on her clinical exam, it is not clear if cerebral edema is severe. she will need depakote and also needs to restart her zyprexa. PLan; 1. Restart zyprexa 2. Discontinue VEEG 3. Continue depakote. 4. PT ST OT dominga reynoso
[2018-05-20] MEDS: Lactated Ringer's 1,000 ML IV SCH (16:18)
[2018-05-21 05:42] LABS: BASO % 0.4 % (0.0-2.0); EOS # 0.1 K/uL (0.0-0.7); EOS % 1.4 % (0.0-4.0); LYMPH # 2.6 K/uL (1.0-4.3); LYMPH % 41.7 % (20.0-40.0); MEAN CELL VOLUME 91.5 fl (81.0-99.0); MEAN CORPUSCULAR HEMOGLOBIN 31.1 pg (27.0-31.0); MEAN PLATELET VOLUME 8.1 fl (7.2-11.7); MONO # 0.3 K/uL (0.0-0.8); MONO % 5.5 % (0.0-10.0); NEUT # 3.2 K/uL (1.8-7.0); NRBC % 0.1 % (0.0-0.0); RBC 4.18 Mil/uL (3.80-5.20); RED CELL DISTRIBUTION WIDTH 12.8 % (11.5-14.5); WHITE BLOOD COUNT 6.2 K/uL (4.8-10.8)
[2018-05-21 06:11] LABS: BLOOD UREA NITROGEN 2 mg/dl (7-17); GFR NON-AFRICAN AMERICAN > 60
[2018-05-21 06:12] LABS: ALB/GLOB RATIO 1.3 (1.0-2.1); ALBUMIN 3.9 g/dL (3.5-5.0); ALT/SGPT 86 U/L (9-52); AST/SGOT 273 U/L (14-36); CALCIUM 9.1 mg/dL (8.4-10.2)
--- NOTE | 2018-05-21 08:29 | CP.PCM.PN ---
Subjective - Date & Time of Evaluation Date of Evaluation: 05/21/18 Time of Evaluation: 08:26 - Subjective Subjective: pt doing well. awake nad alert. answering all questions. no f/c, n/v/d. bw noted. elev lft noted. no abd pain reported/swelling. Objective - Vital Signs/Intake and Output Vital Signs (last 24 hours): Temp Pulse Resp BP Pulse Ox 97.5 F L 63 20 112/75 99 05/21/18 08:19 05/21/18 08:19 05/21/18 08:19 05/21/18 08:19 05/21/18 08:19 - Medications Medications: Current Medications Famotidine (Pepcid) 20 mg PO DAILY [facility] Last Admin: 05/20/18 10:00 Dose: 20 mg Ferrous Gluconate (Fergon) 324 mg PO BID [facility] Last Admin: 05/20/18 20:27 Dose: 324 mg Heparin Sodium (Porcine) (Heparin) 5,000 units SC Q8 [facility]; Protocol Last Admin: 05/21/18 01:04 Dose: 5,000 units Lactated Ringer's (Lactated Ringer's 500ml) 500 mls @ 999 mls/hr IV .Q31M [facility] Last Admin: 05/18/18 21:45 Dose: 999 mls/hr Valproate Sodium 500 mg/ (Sodium Chloride) 105 mls @ 100 mls/hr IVPB Q12 [facility] Last Admin: 05/20/18 22:41 Dose: 100 mls/hr Lactated Ringer's (Lactated Ringer's) 1,000 mls @ 50 mls/hr IV .Q20H [facility] Last Admin: 05/20/18 16:18 Dose: 50 mls/hr Lorazepam (Ativan) 1 mg IVP Q4 PRN PRN Reason: Agitation Last Admin: 05/19/18 23:58 Dose: 1 mg Pantoprazole Sodium (Protonix Inj) 40 mg IVP DAILY [facility] Last Admin: 05/20/18 08:37 Dose: 40 mg Potassium Chloride (K-Dur 20 Meq Er Tab) 20 meq PO BID [facility] Stop: 05/21/18 17:01 Last Admin: 05/20/18 20:24 Dose: 20 meq Multivit/Folic Acid/Iron () 1 tab PO DAILY [facility] Last Admin: 11/11/18 10:00 Dose: 1 tab - Labs Labs: 05/21/18 04:50 05/21/18 04:50 - Constitutional Appears: Well, Non-toxic, No Acute Distress - Head Exam Head Exam: ATRAUMATIC, NORMAL INSPECTION, NORMOCEPHALIC - Eye Exam Eye Exam: EOMI, Normal appearance, PERRL Pupil Exam: NORMAL ACCOMODATION, PERRL - ENT Exam ENT Exam: Mucous Membranes Moist, Normal Exam - Neck Exam Neck Exam: Full ROM, Normal Inspection. absent: Lymphadenopathy - Respiratory Exam Respiratory Exam: Clear to Ausculation Bilateral, NORMAL BREATHING PATTERN - Cardiovascular Exam Cardiovascular Exam: REGULAR RHYTHM, RRR, +S1, +S2. absent: Murmur - GI/Abdominal Exam GI & Abdominal Exam: Soft, Normal Bowel Sounds. absent: Tenderness - Extremities Exam Extremities Exam: Full ROM, Normal Capillary Refill, Normal Inspection. absent: Joint Swelling, Pedal Edema - Back Exam Back Exam: NORMAL INSPECTION - Neurological Exam Neurological Exam: Alert, Awake, CN II-XII Intact, Normal Gait, Oriented x3 - Psychiatric Exam Psychiatric exam: Normal Affect, Normal Mood - Skin Skin Exam: Dry, Intact, Normal Color, Warm Assessment and Plan (1) Psychosis Assessment & Plan: psych reeval. on avysys Status: Acute (2) DVT prophylaxis Assessment & Plan: scd and ae hose heparin Status: Acute (3) Altered mental status Assessment & Plan: appears back at baseline. unkn etiology neuro f/u Status: Acute (4) Hyponatremia Assessment & Plan: normalized will monitor Status: Acute (5) UTI (urinary tract infection) Assessment & Plan: urine c/s negative. will monitor, Status: Acute - Assessment and Plan (Free Text) Assessment: elev lft-liver and gb us, ?? med effect
[2018-05-21] MEDS: Valproate 500 MG in Sodium Chloride 0.9% 100 ML IVPB SCH ×2 (09:25→21:10)
[2018-05-21] MEDS: Prenatal Multivit/Folic Acid/Iron Tab PO SCH (09:29)
[2018-05-21] MEDS: Potassium Chloride 20 mEq ER Tab PO SCH ×2 (09:29→17:49)
--- NOTE | 2018-05-21 09:59 | CARD ---
APPROVED REPORT Date of service: 05/18/2018 EKG Measurement Heart [id number] <Conclusion> Sinus bradycardia Otherwise normal ECG
--- NOTE | 2018-05-21 12:30 | US ---
Date of service: 05/21/2018 HISTORY: elev lft COMPARISON: None. TECHNIQUE: Sonographic evaluation of the right upper quadrant of the abdomen. FINDINGS: LIVER: Measures 13.4 cm in length. Patent portal vein. Portal venous flow: Hepatopetal. Unremarkable echogenicity of the liver parenchyma. No mass. No intrahepatic bile duct dilatation. Incidental finding(s): Simple cyst right hepatic lobe 7 x 10 mm GALLBLADDER: Unremarkable. No gallstones. COMMON BILE DUCT: Measures 4.8 mm. No stones. No dilatation. PANCREAS: Unremarkable as visualized. No mass. No ductal dilatation. RIGHT KIDNEY: Measures 4.8 x 9.8 cm in length. Normal echogenicity. No calculus, mass, or hydronephrosis. AORTA: No aneurysmal dilatation. IVC: Unremarkable. OTHER FINDINGS: None . IMPRESSION: No significant or acute findings to account for/ related to the clinical presentation. Additional benign and/or incidental findings described above.
[2018-05-21 17:02] LABS: FOLATE 10.8 ng/mL
[2018-05-22 05:19] LABS: BASO % 0.7 % (0.0-2.0); EOS # 0.1 K/uL (0.0-0.7); EOS % 2.1 % (0.0-4.0); HEMOGLOBIN 13.5 g/dL (12.0-16.0); LYMPH # 3.1 K/uL (1.0-4.3); LYMPH % 44.4 % (20.0-40.0); MEAN CELL VOLUME 91.8 fl (81.0-99.0); MEAN CORPUSCULAR HEMOGLOBIN 30.6 pg (27.0-31.0); MEAN CORPUSCULAR HGB CONC 33.3 g/dL (33.0-37.0); MONO # 0.3 K/uL (0.0-0.8); NEUT # 3.4 K/uL (1.8-7.0); NEUT % 47.8 % (50.0-75.0); NRBC % 0.2 % (0.0-0.0); RBC 4.4 Mil/uL (3.80-5.20); RED CELL DISTRIBUTION WIDTH 12.8 % (11.5-14.5)
[2018-05-22 05:36] LABS: ALB/GLOB RATIO 1.3 (1.0-2.1); ALT/SGPT 95 U/L (9-52); AST/SGOT 279 U/L (14-36); BLOOD UREA NITROGEN 6 mg/dl (7-17); CALCIUM 9.4 mg/dL (8.4-10.2); GFR NON-AFRICAN AMERICAN > 60
--- NOTE | 2018-05-22 08:01 | CP.PCM.CON ---
History of Present Illness - History of Present Illness History of Present Illness: Psychiatry follow-up note CC: "I'm feeling better." HPI: 42 yr old woman who was BIBA with , after having several seizures, and found to be severely hyponatremic. states that he was in the other room, when he suddenly heard a bang, and patient was seen to be tonic and falling back, hitting her head. She then had a gtc with foaming of the mouth. PT's initial CT head showed severe cerebral edema, and she was unresponsive until this morning. Continuous VEEG showed normal rhythms with no seizure, and some normal sleep and awake rhythms. Patient interviewed w/ presents. Patient currently A + O x 4, she u nderstands why she is in the hospital. She has a history of Bipolar Disorder vs Schizophrenia and was previously prescribed Zyprexa 5 mg PO HS, but only takes it when she has difficulty sleeping. She denies acute depression/anxiety/AH/VH/SI/HI and does not want psychiatric admission. Psychoeducation provided on the importance of compliance with outpatient therapy and medications. Impression: 42 yo female, initially presented confused and delirious s/p multiple seizures and hyponatremia, now has improved mental status and denies acute psychiatric symptoms. Patient does not meet criteria for involuntary commitment at this time and does not want voluntary psychiatric admission. Recommendations: -Restart Zyprexa 5 mg PO HS; recommend to give prescription (30 days); patient needs to find a new outpatient psychiatrist who takes her current insurance -Patient is psychiatrically stable for discharge Past Patient History - Past Social History Smoking Status: Never Smoked - MUSCULOSKELETAL/RHEUMATOLOGICAL Hx Falls: Yes - GASTROINTESTINAL Hx Gastritis: Yes - PSYCHIATRIC Hx Psychophysiologic Disorder: Yes Hx Substance Use: No - ANESTHESIA Hx Anesthesia: No Meds Allergies/Adverse Reactions: Allergies Allergy/AdvReac Type Severity Reaction Status Date / Time No Known Allergies Allergy Unverified 05/17/18 19:57 - Medications Medications: Current Medications Famotidine (Pepcid) 20 mg PO DAILY [facility] Last Admin: 05/21/18 09:00 Dose: 20 mg Ferrous Gluconate (Fergon) 324 mg PO BID [facility] Last Admin: 05/21/18 17:48 Dose: 324 mg Heparin Sodium (Porcine) (Heparin) 5,000 units SC Q8 [facility]; Protocol Last Admin: 05/22/18 00:12 Dose: 5,000 units Lactated Ringer's (Lactated Ringer's 500ml) 500 mls @ 999 mls/hr IV .Q31M [facility] Last Admin: 05/18/18 21:45 Dose: 999 mls/hr Valproate Sodium 500 mg/ (Sodium Chloride) 105 mls @ 100 mls/hr IVPB Q12 [facility] Last Admin: 05/21/18 21:10 Dose: 100 mls/hr Lactated Ringer's (Lactated Ringer's) 1,000 mls @ 50 mls/hr IV .Q20H [facility] Last Admin: 05/20/18 16:18 Dose: 50 mls/hr Lorazepam (Ativan) 1 mg IVP Q4 PRN PRN Reason: Agitation Last Admin: 05/19/18 23:58 Dose: 1 mg Pantoprazole Sodium (Protonix Inj) 40 mg IVP DAILY [facility] Last Admin: 05/21/18 09:26 Dose: 40 mg Multivit/Folic Acid/Iron () 1 tab PO DAILY [facility] Last Admin: 05/21/18 09:29 Dose: 1 tab Results - Vital Signs Recent Vital Signs: Last Vital Signs Temp 98.3 F 05/22/18 04:54 Pulse 74 05/22/18 04:54 Resp 16 05/22/18 04:54 BP 110/75 05/22/18 04:54 Pulse Ox 99 05/22/18 04:54 - Labs Result Diagrams: 05/22/18 05:00 05/22/18 05:00 Labs: Laboratory Results - last 24 hr 05/20/18 05/21/18 05/21/18 11:30 04:50 04:50 WBC RBC Hgb Hct MCV MCH MCHC RDW Plt Count MPV Neut % (Auto) Lymph % (Auto) Knott % (Auto) Eos % (Auto) Baso % (Auto) Neut # (Auto) Lymph # (Auto) Knott # (Auto) Eos # (Auto) Baso # (Auto) Sodium Potassium Chloride Carbon Dioxide Anion Gap BUN Creatinine Est GFR ( Amer) Est GFR (Non-Af Amer) Random Glucose Calcium Phosphorus Magnesium Total Bilirubin AST ALT Alkaline Phosphatase Total Protein Albumin Globulin Albumin/Globulin Ratio Folate 10.8 Stool Occult Blood Negative Valproic Acid RPR HIV 1&2 Antibody Screen Negative 05/21/18 05/22/18 05/22/18 04:50 05:00 05:00 WBC 7.0 RBC 4.40 Hgb 13.5 Hct 40.4 MCV 91.8 MCH 30.6 MCHC 33.3 RDW 12.8 Plt Count 230 MPV 8.0 Neut % (Auto) 47.8 L Lymph % (Auto) 44.4 H Knott % (Auto) 5.0 Eos % (Auto) 2.1 Baso % (Auto) 0.7 Neut # (Auto) 3.4 Lymph # (Auto) 3.1 Knott # (Auto) 0.3 Eos # (Auto) 0.1 Baso # (Auto) 0.0 Sodium 133 Potassium 4.2 Chloride 100 Carbon Dioxide 25 Anion Gap 12 BUN 6 L Creatinine 0.5 L Est GFR ( Amer) > 60 Est GFR (Non-Af Amer) > 60 Random Glucose 96 Calcium 9.4 Phosphorus 4.4 Magnesium 1.8 Total Bilirubin 1.0 AST 279 H ALT 95 H Alkaline Phosphatase 45 Total Protein 6.9 Albumin 4.0 Globulin 3.0 Albumin/Globulin Ratio 1.3 Folate Stool Occult Blood Valproic Acid RPR Nonreactive HIV 1&2 Antibody Screen 05/22/18 05:00 WBC RBC Hgb Hct MCV MCH MCHC RDW Plt Count MPV Neut % (Auto) Lymph % (Auto) Knott % (Auto) Eos % (Auto) Baso % (Auto) Neut # (Auto) Lymph # (Auto) Knott # (Auto) Eos # (Auto) Baso # (Auto) Sodium Potassium Chloride Carbon Dioxide Anion Gap BUN Creatinine Est GFR ( Amer) Est GFR (Non-Af Amer) Random Glucose Calcium Phosphorus Magnesium Total Bilirubin AST ALT Alkaline Phosphatase Total Protein Albumin Globulin Albumin/Globulin Ratio Folate Stool Occult Blood Valproic Acid 105.2 H RPR HIV 1&2 Antibody Screen
[2018-05-22] MEDS: Prenatal Multivit/Folic Acid/Iron Tab PO SCH (09:01)
--- NOTE | 2018-05-22 09:04 | CP.PCM.PN ---
Subjective - Date & Time of Evaluation Date of Evaluation: 05/22/18 Time of Evaluation: 09:02 - Subjective Subjective: pt doing well. comfortable and calm in bed. at bedside. a/ox4. no distress. bw noted. lft elevated ?? med effect-liver us negative for psych reeval and placement Objective - Vital Signs/Intake and Output Vital Signs (last 24 hours): Temp Pulse Resp BP Pulse Ox 98.3 F 74 16 110/75 99 05/22/18 04:54 05/22/18 04:54 05/22/18 04:54 05/22/18 04:54 05/22/18 04:54 - Medications Medications: Current Medications Famotidine (Pepcid) 20 mg PO DAILY [facility] Last Admin: 05/21/18 09:00 Dose: 20 mg Ferrous Gluconate (Fergon) 324 mg PO BID [facility] Last Admin: 05/21/18 17:48 Dose: 324 mg Heparin Sodium (Porcine) (Heparin) 5,000 units SC Q12 [facility]; Protocol Lactated Ringer's (Lactated Ringer's 500ml) 500 mls @ 999 mls/hr IV .Q31M [facility] Last Admin: 05/18/18 21:45 Dose: 999 mls/hr Valproate Sodium 500 mg/ (Sodium Chloride) 105 mls @ 100 mls/hr IVPB Q12 [facility] Last Admin: 05/21/18 21:10 Dose: 100 mls/hr Lactated Ringer's (Lactated Ringer's) 1,000 mls @ 50 mls/hr IV .Q20H [facility] Last Admin: 05/20/18 16:18 Dose: 50 mls/hr Lorazepam (Ativan) 1 mg IVP Q4 PRN PRN Reason: Agitation Last Admin: 05/19/18 23:58 Dose: 1 mg Multivit/Folic Acid/Iron () 1 tab PO DAILY [facility] Last Admin: 05/21/18 09:29 Dose: 1 tab - Labs Labs: 05/22/18 05:00 05/22/18 05:00 - Constitutional Appears: Well, Non-toxic, No Acute Distress - Head Exam Head Exam: ATRAUMATIC, NORMAL INSPECTION, NORMOCEPHALIC - Eye Exam Eye Exam: EOMI, Normal appearance, PERRL Pupil Exam: NORMAL ACCOMODATION, PERRL - ENT Exam ENT Exam: Mucous Membranes Moist, Normal Exam - Neck Exam Neck Exam: Full ROM, Normal Inspection. absent: Lymphadenopathy - Respiratory Exam Respiratory Exam: Clear to Ausculation Bilateral, NORMAL BREATHING PATTERN - Cardiovascular Exam Cardiovascular Exam: REGULAR RHYTHM, RRR, +S1, +S2. absent: Murmur - GI/Abdominal Exam GI & Abdominal Exam: Soft, Normal Bowel Sounds. absent: Tenderness - Extremities Exam Extremities Exam: Full ROM, Normal Capillary Refill, Normal Inspection. absent: Joint Swelling, Pedal Edema - Back Exam Back Exam: NORMAL INSPECTION - Neurological Exam Neurological Exam: Alert, Awake, CN II-XII Intact, Normal Gait, Oriented x3 - Psychiatric Exam Psychiatric exam: Normal Affect, Normal Mood - Skin Skin Exam: Dry, Intact, Normal Color, Warm Assessment and Plan (1) Psychosis Status: Acute (2) DVT prophylaxis Status: Acute (3) Altered mental status Status: Acute (4) Hyponatremia Status: Acute (5) UTI (urinary tract infection) Status: Acute - Assessment and Plan (Free Text) Assessment: (1) Psychosis Assessment & Plan: psych reeval. on avysys Status: Acute (2) DVT prophylaxis Assessment & Plan: scd and ae hose heparin Status: Acute (3) Altered mental status Assessment & Plan: appears back at baseline. unkn etiology neuro f/u Status: Acute (4) Hyponatremia Assessment & Plan: normalized will monitor Status: Acute (5) UTI (urinary tract infection) Assessment & Plan: urine c/s negative. will monitor, Status: Acute elev lft-liver and gb us, ?? med effect
[2018-05-22] MEDS: Valproate 500 MG in Sodium Chloride 0.9% 100 ML IVPB SCH (12:58)
[2018-05-22 16:03] VITALS: BP 102/68
[2018-05-22] MEDS ORDERED: Divalproex 500 mg DR(BID formulation) PO SCH (18:45)
[2018-05-22 19:49] VITALS: PULSE 68; RESP 18; TEMP 97; O2SAT 97
== END 2018-05-22 20:30 | disposition home or self-care (01) | DRG 641 ==
LOC: H.ER 19:51 → H.ERHOLD 22:54 → H.ICU/CCU 05-18 12:18 → H.TEL 05-20 13:23
PROVIDERS: ADMIT Family Medicine; ATTEND Family Medicine
DX: E87.1 Hypo-osmolality and hyponatremia (principal); N39.0 Urinary tract infection, site not specified; F20.0 Paranoid schizophrenia; F20.2 Catatonic schizophrenia; E87.6 Hypokalemia; Z78.1 Physical restraint status; Z91.14 Patient's other noncompliance with medication regimen; G40.909 Epilepsy, unspecified, not intractable, without status epilepticus; R41.0 Disorientation, unspecified; F31.9 Bipolar disorder, unspecified; D64.9 Anemia, unspecified; S40.022A Contusion of left upper arm, initial encounter; S40.021A Contusion of right upper arm, initial encounter; W19.XXXA Unspecified fall, initial encounter; Y92.009 Unspecified place in unspecified non-institutional (private) residence as the place of occurrence of the external cause; K29.70 Gastritis, unspecified, without bleeding; I95.2 Hypotension due to drugs; T50.995A Adverse effect of other drugs, medicaments and biological substances, initial encounter; R00.1 Bradycardia, unspecified